=== PATIENT | male | born 1935 | race African-American/Black ===

== ENCOUNTER 2018-07-19 13:34 | Inpatient (IN) | payer OTHER ==
[~2018-07-19] VITALS: Ht 185.4 cm; Wt 64.4 kg
[2018-07-19] MEDS ORDERED: SODIUM CHLORIDE 0.9% 1,000 ML IV ONE ×3 (13:48→17:45)
[2018-07-19] MEDS ORDERED: ONDANSETRON HCL 4MG/2ML INJ IV STA (13:48)
[2018-07-19 14:10] LABS: BG BASE EXCESS -17.4 mmol/L (-2.0-2.0); BG CARBOXYHEMOGLOBIN 0.3 % (0.5-1.5); BG DEOXYHEMOGLOBIN 3.1 % (0.0-5.0); BG HCO3 ACT 10.4 mmol/L (22.0-26.0); BG METHEMOGLOBIN 0.4 % (0.0-1.5); BG OXYGEN SATURATION 96.9 % (92.0-98.5); BG OXYHEMOGLOBIN 96.2 % (94.0-97.0); BG PCO2 31.9 mmHg (35.0-45.0); BG PH 7.133 (7.350-7.450); BG PO2 122.4 mmHg (75.0-100.0); BG SAMPLE SITE RIGHT RADIAL; BG TOTAL HEMOGLOBIN 10.5 g/dL (12.0-18.0); BG VENT MODE ROOM AIR
[2018-07-19 15:13] LABS: CHLORIDE 108 mEq/L (98-107)
[2018-07-19 15:17] LABS: BASOPHILS % 0.3 % (0.0-2.0); EOSINOPHILS % 0.4 % (0.0-5.0); HEMATOCRIT. 26.5 % (42.0-52.0); HEMOGLOBIN. 9.2 g/dL (14.0-18.0); LYMPHOCYTES % 8.9 % (20.0-50.0); MEAN CORPUSCULAR HEMOGLOBIN 31.3 pg (28.0-32.0); MEAN CORPUSCULAR VOLUME 89.7 fL (80.0-94.0); MEAN PLATELET VOLUME 8.6 fl (7.4-10.4); MONOCYTES % 8.9 % (2.0-8.0); NEUTROPHILS % 81.5 % (40.0-76.0); PLATELET 124 x1000/uL (130-400); RED BLOOD CELL COUNT 2.95 mill/uL (4.7-6.1); RED CELL DISTRIBUTION WIDTH 15.9 % (11.6-14.6)
[2018-07-19 15:18] LABS: ETHANOL BLOOD < 10 mg/dL
[2018-07-19 16:27] LABS: CLARITY URINE TURBID (CLEAR); COLOR URINE YELLOW (YELLOW); KETONES URINE 1+ (NEGATIVE); LEUKOCYTE ESTERASE URINE 3+ (NEGATIVE); NITRITE URINE NEGATIVE (NEGATIVE); OCCULT BLOOD URINE 2+ (NEGATIVE); PROTEIN URINE 2+ (NEGATIVE); SPECIFIC GRAVITY URINE 1.016 (1.005-1.030)
[2018-07-19] MEDS ORDERED: CEFTRIAXONE 1 G PREMIX 50 ML IV ONE (16:45)
[2018-07-19] MEDS ORDERED: ASPIRIN 300MG SUPP PR ONE (16:45)
[2018-07-19 16:46] LABS: *AMPHETAMINES SCREEN URINE NEGATIVE (NEGATIVE); *BARBITURATES SCREEN URINE NEGATIVE (NEGATIVE); *BENZODIAZEPINES SCREEN URINE NEGATIVE (NEGATIVE); *COCAINE SCREEN URINE NEGATIVE (NEGATIVE); METHADONE URINE SCREEN NEGATIVE (NEGATIVE)
[2018-07-19 16:47] LABS: CANNABINOID URINE SCREEN NEGATIVE (NEGATIVE); OPIATES URINE SCREEN NEGATIVE (NEGATIVE); PHENCYCLIDINE URINE SCREEN NEGATIVE (NEGATIVE)
[2018-07-19] MEDS ORDERED: ONDANSETRON HCL 4MG/2ML INJ IV PRN (17:45)
[2018-07-19] MEDS ORDERED: IPRATROPIUM/ALBUTEROL 0.5-3(2.5)MG/3ML NEB INH PRN (17:45)
[2018-07-19] MEDS ORDERED: DIPHENHYDRAMINE 50MG/ML VIAL IV PRN (17:45)
[2018-07-19] MEDS ORDERED: SODIUM BICARBONATE 8.4% 1 MEQ/ML 50ML SYR IV NR (18:09)
[2018-07-19] MEDS ORDERED: SODIUM BICARBONATE 150 MEQ in DEXTROSE 5% WATER 1,000 ML IV NR (18:30)
[2018-07-19 19:18] LABS: PHOSPHORUS 8.9 mg/dL (2.5-4.9)
[2018-07-19 19:34] LABS: HEPATITIS B SURFACE ANTIGEN NEGATIVE
[2018-07-19 20:04] LABS: HEPATITIS A AB IGM NEGATIVE (NEGATIVE)
[2018-07-19 21:00] LABS: BG FRACTION INSPIRED OXYGEN 21; BG HCO3 ACT 8.7 mmol/L (22.0-26.0); BG PCO2 22.1 mmHg (35.0-45.0); BG PH 7.214 (7.350-7.450); BG PO2 131.6 mmHg (75.0-100.0); BG SAMPLE SITE RIGHT RADIAL; BG VENT MODE ROOM AIR
[2018-07-19] MEDS ORDERED: VANCOMYCIN 1250MG in DEXTROSE 5% WATER 250ML IV SCH (23:00)
[2018-07-19] MEDS ORDERED: PIPERACILLIN/TAZ 2.25G PREMIX 50 ML IV SCH (23:00)
[2018-07-19 23:33] LABS: D-DIMER 1.29 mg/L FEU (<0.50); INR 1.1; PARTIAL THROMBOPLASTIN TIME 28.5 sec (23.4-31.0); PROTHROMBIN TIME 11.1 sec (9.1-11.1)
[2018-07-19 23:35] LABS: CREATINE KINASE MB FRACTION 29.6 ng/mL (0.5-3.6)
[2018-07-20] VITALS (25 sets, daily range): BP systolic 125–196; BP diastolic 60–103
[2018-07-20] MEDS: LORAZEPAM 2MG/ML CPJ IV PRN ×2 (00:27→14:10)
[2018-07-20] MEDS ORDERED: CEFTRIAXONE 1 G PREMIX 50 ML IV SCH (04:00)
[2018-07-20 04:21] LABS: HEMATOCRIT. 29.4 % (42.0-52.0); MEAN CORPUSCULAR HEMOGLOBIN 30.9 pg (28.0-32.0); MEAN CORPUSCULAR VOLUME 91.1 fL (80.0-94.0); MEAN PLATELET VOLUME 8.6 fl (7.4-10.4); PLATELET 118 x1000/uL (130-400); RED BLOOD CELL COUNT 3.22 mill/uL (4.7-6.1); RED CELL DISTRIBUTION WIDTH 16.4 % (11.6-14.6)
[2018-07-20 04:26] LABS: CHLORIDE 109 mEq/L (98-107)
[2018-07-20 04:34] LABS: HDL CHOLESTEROL 74 mg/dL (40-59)
[2018-07-20 04:35] LABS: LDL CHOLESTEROL 91 mg/dL (5-100)
[2018-07-20 04:39] LABS: CREATINE KINASE MB FRACTION 28.9 ng/mL (0.5-3.6)
[2018-07-20 04:48] LABS: CREATINE KINASE 2072 IU/L (39-308)
[2018-07-20] MEDS ORDERED: PIPERACILLIN/TAZ 2.25G PREMIX 50 ML IV SCH (07:00)
[2018-07-20] MEDS: AMLODIPINE 2.5MG TABLET PO SCH ×2 (09:45→21:00)
[2018-07-20 09:48] LABS: NUCLEATED RED BLOOD CELLS 1 /100 WBC; PLATELET ESTIMATE SLIGHTLY DECREASED
[2018-07-20] MEDS: CLONIDINE 0.2MG TABLET PO PRN (10:44)
[2018-07-20] MEDS: HYDRALAZINE 20MG/ML VIAL IV PRN ×2 (10:51→17:55)
[2018-07-20] MEDS: CITRIC ACID/SODIUM CITRATE SOLN 30ML UDC PO SCH ×3 (11:04→17:00)
[2018-07-20] MEDS: PIPERACILLIN/TAZ 2.25G PREMIX 50 ML IV SCH ×2 (13:48→17:44)
[2018-07-20 13:54] LABS: FOLIC ACID (FOLATE) SERUM > 20.00 ng/mL (>5.38); VITAMIN B12 SERUM > 2000.0 pg/mL (211-911)
[2018-07-20] MEDS ORDERED: VANCOMYCIN 500 MG PREMIX 100 ML IV SCH (14:00)
[2018-07-20] MEDS: SODIUM BICARBONATE 150 MEQ in DEXTROSE 5% WATER 950 ML IV NR ×2 (14:02→20:45)
[2018-07-20] MEDS: MULTIVITAMINS,THER W-MINERALS TABLET PO SCH (17:45)
[2018-07-20] MEDS: THIAMINE HCL 100MG TABLET PO SCH (17:45)
[2018-07-20] MEDS: FOLIC ACID 1MG TABLET PO SCH (17:45)
[2018-07-20 19:29] LABS: T4 FREE 1.47 ng/dL (0.76-1.46)
[2018-07-21] VITALS (27 sets, daily range): BP systolic 103–188; BP diastolic 54–104
[2018-07-21] MEDS: HYDRALAZINE 20MG/ML VIAL IV PRN ×2 (01:23→10:36)
[2018-07-21] MEDS: PIPERACILLIN/TAZ 2.25G PREMIX 50 ML IV SCH ×2 (02:55→09:46)
[2018-07-21] MEDS: CLONIDINE 0.2MG TABLET PO PRN ×2 (04:05→16:25)
[2018-07-21] MEDS: SODIUM BICARBONATE 150 MEQ in DEXTROSE 5% WATER 950 ML IV NR (06:06)
[2018-07-21 06:46] LABS: PHOSPHORUS 3.9 mg/dL (2.5-4.9)
[2018-07-21 06:55] LABS: CREATINE KINASE MB FRACTION 13.4 ng/mL (0.5-3.6)
[2018-07-21 08:25] LABS: HIV SCREEN 4G Non Reactive (Non Reactive)
[2018-07-21] MEDS ORDERED: KCL 20MEQ/100ML PREMIX 100 ML IV NR (08:30)
[2018-07-21 08:52] LABS: BASOPHILS % 0.3 % (0.0-2.0); HEMATOCRIT. 26.9 % (42.0-52.0); HEMOGLOBIN. 9.4 g/dL (14.0-18.0); LYMPHOCYTES % 10.3 % (20.0-50.0); MEAN CORPUSCULAR HEMOGLOBIN 30.6 pg (28.0-32.0); MEAN CORPUSCULAR VOLUME 87.4 fL (80.0-94.0); MEAN PLATELET VOLUME 8.3 fl (7.4-10.4); MONOCYTES % 14.4 % (2.0-8.0); PLATELET 106 x1000/uL (130-400); RED BLOOD CELL COUNT 3.08 mill/uL (4.7-6.1); RED CELL DISTRIBUTION WIDTH 16.8 % (11.6-14.6)
[2018-07-21] MEDS: SODIUM CHLORIDE 0.9% 1,000 ML IV SCH ×3 (09:45→22:00)
[2018-07-21] MEDS: FOLIC ACID 1MG TABLET PO SCH (09:45)
[2018-07-21] MEDS: MULTIVITAMINS,THER W-MINERALS TABLET PO SCH (09:45)
[2018-07-21] MEDS: AMLODIPINE 2.5MG TABLET PO SCH ×2 (09:45→21:03)
[2018-07-21] MEDS: THIAMINE HCL 100MG TABLET PO SCH (09:45)
[2018-07-21] MEDS: CEFAZOLIN 1000MG PREMIX 50 ML IV SCH (14:06)
[2018-07-21] MEDS: HYDRALAZINE HCL 50MG TABLET PO SCH ×2 (14:06→21:03)
[2018-07-21 18:12] LABS: CREATINE KINASE 702 IU/L (39-308)
[2018-07-22] VITALS (12 sets, daily range): BP systolic 142–176; BP diastolic 75–92
[2018-07-22] MEDS: CEFAZOLIN 1000MG PREMIX 50 ML IV SCH ×2 (01:22→15:56)
[2018-07-22] MEDS: SODIUM CHLORIDE 0.9% 1,000 ML IV SCH ×2 (03:30→12:55)
[2018-07-22 05:38] LABS: BASOPHILS % 0.6 % (0.0-2.0); EOSINOPHILS % 3.2 % (0.0-5.0); HEMATOCRIT. 24.1 % (42.0-52.0); HEMOGLOBIN. 8.7 g/dL (14.0-18.0); LYMPHOCYTES % 17.4 % (20.0-50.0); MEAN CORPUSCULAR HEMOGLOBIN 31.3 pg (28.0-32.0); MEAN PLATELET VOLUME 8.6 fl (7.4-10.4); MONOCYTES % 12.5 % (2.0-8.0); NEUTROPHILS % 66.3 % (40.0-76.0); PLATELET 98 x1000/uL (130-400); RED BLOOD CELL COUNT 2.77 mill/uL (4.7-6.1); RED CELL DISTRIBUTION WIDTH 16.5 % (11.6-14.6)
[2018-07-22 05:54] LABS: CHLORIDE 114 mEq/L (98-107)
[2018-07-22 06:03] LABS: CREATINE KINASE 545 IU/L (39-308)
[2018-07-22] MEDS: HYDRALAZINE HCL 50MG TABLET PO SCH (06:24)
[2018-07-22] MEDS: FOLIC ACID 1MG TABLET PO SCH (09:37)
[2018-07-22] MEDS: MULTIVITAMINS,THER W-MINERALS TABLET PO SCH (09:37)
[2018-07-22] MEDS: THIAMINE HCL 100MG TABLET PO SCH (09:38)
[2018-07-22] MEDS: AMLODIPINE 2.5MG TABLET PO SCH ×2 (09:38→21:05)
[2018-07-22] MEDS ORDERED: CLONIDINE 0.1MG TABLET PO PRN (09:45)
[2018-07-22] MEDS ORDERED: POTASSIUM CHLORIDE 20MEQ TABLET SR PO SCH (11:45)
[2018-07-22] MEDS: CLONIDINE 0.1MG TABLET PO SCH ×2 (15:55→21:05)
[2018-07-22] MEDS ORDERED: HYDRALAZINE HCL 100MG TABLET PO SCH (22:00)
== END 2018-07-22 22:50 | disposition short-term general hospital (02) | DRG 871 ==
LOC: ER 13:34 → EDBEDREQ 17:22 → EDBEDREQSVC 17:28 → MICUSO 17:30 → ENRESERV 07-20 07:11 → 8WST 07-22 06:45
PROVIDERS: ADMIT Internal Medicine; ATTEND Internal Medicine
DX: A41.9 Sepsis, unspecified organism (principal); G92 Toxic encephalopathy; I16.1 Hypertensive emergency; M62.82 Rhabdomyolysis; N39.0 Urinary tract infection, site not specified; N17.9 Acute kidney failure, unspecified; E87.2 Acidosis; E87.0 Hyperosmolality and hypernatremia; Z90.5 Acquired absence of kidney; R79.1 Abnormal coagulation profile; D63.8 Anemia in other chronic diseases classified elsewhere; E83.39 Other disorders of phosphorus metabolism; E83.41 Hypermagnesemia; N18.9 Chronic kidney disease, unspecified; D69.6 Thrombocytopenia, unspecified; E87.6 Hypokalemia; I13.10 Hypertensive heart and chronic kidney disease without heart failure, with stage 1 through stage 4 chronic kidney disease, or unspecified chronic kidney disease; N28.1 Cyst of kidney, acquired; N40.0 Benign prostatic hyperplasia without lower urinary tract symptoms; R32 Unspecified urinary incontinence; B96.20 Unspecified Escherichia coli [E. coli] as the cause of diseases classified elsewhere; R74.0 Nonspecific elevation of levels of transaminase and lactic acid dehydrogenase [LDH]; R65.20 Severe sepsis without septic shock; Z82.49 Family history of ischemic heart disease and other diseases of the circulatory system; Z86.73 Personal history of transient ischemic attack (TIA), and cerebral infarction without residual deficits
CPT/HCPCS: 36415; 36600; 70551; 71045; 76770; 78582; 80048; 80061; 80076; 80202; 80305; 80307; 80320; 80329; 82140; 82375; 82550; 82553; 82607; 82746; 82805; 83036; 83540; 83550; 83605; 83615; 83735; 84066; 84100; 84145; 84153; 84439; 84443; 84481; 84484; 84550; 85044; 85379; 86705; 86709; 86803; 87077; 87186; 87340; 87389; 92610; 93005; 93306; 93880; 93970; 96361; 96365; 96375; 97116; 97163; 97166; 97530; 97535; 99291; A9558; J0360; J0690; J0696; J2060; J2543; J3370; J3480; J3490; J7030; J7040; J7060; J7070; G0103; G0480